=== PATIENT | female | born 1945 | race Caucasian/White ===

== ENCOUNTER 2019-02-01 10:25 | Emergency (ER) | payer MEDICARE, BC ==
--- NOTE | 2019-02-01 10:46 | EDM.PDOC ---
ED HPI GENERAL MEDICAL PROBLEM - General Chief Complaint: Neuro Symptoms/Deficits Stated Complaint: LEFT ARM NUMBNESS,DIZZY Time Seen by Provider: 02/01/19 10:31 Source of Information: Reports: Patient, Family () History Limitations: Reports: No Limitations - History of Present Illness INITIAL COMMENTS - FREE TEXT/NARRATIVE: The patient states that she was holding a cup of coffee in her left hand around 9:30 this morning, when she leaned down to tie her shoes, and states that she lost control of her left hand, that it became weak and clumsy, causing her to spill some coffee. She states that her right hand also felt "goofy", although her left hand clumsiness was worse than her right. The patient states that she simultaneously had the sensation that the room was spinning, which lasted for about 1 minute. At present, she states that the room is not spinning, but she does not feel fully back to normal, that her head feels "esparza", and she may have some dizziness - she's not sure. She also reports some pressure felt in her left posterior parietal area, although she does not call it a headache, per se, that also developed around the same time as her other symptoms. She states that her bilateral hand clumsiness has significantly improved, although is also not back to normal. The patient denies having any of these symptoms previously. The patient states that she took an aspirin when her symptoms occurred. The patient's PCP is Dr. Wilder Rai. Her Sterile Technician is Dr. Ashely Eric. Left Headache Pain Score (Numeric/FACES): 3 - Related Data Allergies Allergy/AdvReac Type Severity Reaction Status Date / Time No Known Allergies Allergy Verified 02/01/19 10:44 Past Medical History Cardiovascular History: Reports: High Cholesterol, Hypertension Gastrointestinal History: Reports: Diverticulosis (with diverticulitis), GERD Genitourinary History: Reports: Urinary Incontinence (stress incontinence) Musculoskeletal History: Reports: RA Endocrine/Metabolic History: Reports: Hypothyroidism - Past Surgical History GI Surgical History: Reports: Colonoscopy (x 1). Denies: EGD Female Surgical History: Reports: Hysterectomy (complete), Other (See Below) (Right breast milk duct removal) Social & Family History - Tobacco Use Smoking Status *Q: Never Smoker - Alcohol Use Alcohol Use History: Yes Alcohol Use Frequency: Rarely - Recreational Drug Use Recreational Drug Use: No - Living Situation & Occupation Living situation: Reports: , with Spouse Occupation: Retired ED ROS GENERAL - Review of Systems Review Of Systems: ROS reveals no pertinent complaints other than HPI. ED EXAM, NEURO - Physical Exam Exam: See Below Exam Limited By: No Limitations General Appearance: Alert, WD/WN, No Apparent Distress Eye Exam: Bilateral Eye: EOMI, Normal Inspection, PERRL Ears: Normal External Exam, Hearing Grossly Normal Nose: Normal Inspection Throat/Mouth: Normal Inspection, Normal Lips, Normal Voice, No Airway Compromise Head Exam: Atraumatic, Normocephalic Neck: Normal Inspection, Full Range of Motion. No: Carotid Bruit Respiratory/Chest: No Respiratory Distress, Lungs Clear, Normal Breath Sounds, No Accessory Muscle Use Cardiovascular: Normal Peripheral Pulses, Regular Rate, Rhythm, No Gallop, No JVD, No Murmur, No Rub GI/Abdominal: Normal Bowel Sounds, Soft, Non-Tender, No Organomegaly, No Distention, No Abnormal Bruit, No Mass (Female) Exam: Deferred Rectal (Female) Exam: Deferred Neurological: Alert, Normal Dorsiflexion, CN II-XII Intact, Normal Plantar Flexion, No Motor/Sensory Deficits (No appreciable hand weakness, either side), Oriented x 3 Back Exam: Normal Inspection, Full Range of Motion, NT Extremities: Normal Inspection, Normal Range of Motion, No Pedal Edema, Normal Capillary Refill Psychiatric: Normal Affect Skin Exam: Warm, Dry, Intact, Normal Color, No Rash EKG INTERPRETATION EKG Date: 02/01/19 Time: 11:13 Rhythm: NSR (with a single PAC) Rate (Beats/Min): 79 Strong: Normal P-Wave: Present QRS: Normal ST-T: Normal QT: Normal Comparison: NA - No Prior EKG Course - Vital Signs Last Recorded V/S: Last Vital Signs Temp 36.3 C 02/01/19 10:40 Pulse 84 02/01/19 10:40 Resp 16 02/01/19 10:40 BP 195/101 H 02/01/19 10:40 Pulse Ox 97 02/01/19 10:40 Orthostatic Blood Pressure [ 173/90 Standing] Orthostatic Blood Pressure [ 177/88 Sitting] Orthostatic Blood Pressure [ 175/79 Supine] - Orders/Labs/Meds Orders: Active Orders 24 hr Category Date Time Status EKG Documentation Completion [RC] STAT Care 02/01/19 10:44 Active Orthostatic Vital Signs [RC] STAT Care 02/01/19 10:44 Active Sodium Chloride 0.9% [Normal Saline] 1,000 ml Med 02/01/19 11:45 Active IV ASDIRECTED Sodium Chloride 0.9% [Normal Saline] 100 ml Med 02/01/19 11:45 Active IV ASDIRECTED Sodium Chloride 0.9% [Saline Flush] Med 02/01/19 11:35 Active 10 ml FLUSH ONETIME PRN Medication Orders Sodium Chloride (Normal Saline) 1,000 mls @ 150 mls/hr IV ASDIRECTED ABRAN Sodium Chloride (Normal Saline) 100 mls @ 80 mls/hr IV ASDIRECTED ABRAN Last Admin: 02/01/19 11:56 Dose: 80 mls/hr Sodium Chloride (Saline Flush) 10 ml FLUSH ONETIME PRN PRN Reason: KEEP VEIN OPEN Last Admin: 02/01/19 11:55 Dose: 10 ml Labs: Laboratory Tests 02/01/19 02/01/19 02/01/19 Range/Units 10:35 10:35 10:35 WBC 4.77 (3.98-10.04) K/mm3 RBC 5.14 (3.98-5.22) M/mm3 Hgb 12.2 (11.2-15.7) gm/L Hct 39.2 (34.1-44.9) % MCV 76.3 L (79.4-94.8) fl MCH 23.7 L (25.6-32.2) pg MCHC 31.1 L (32.2-35.5) g/dl RDW Std Deviation 56.4 H (36.4-46.3) fL Plt Count 301 (182-369) K/mm3 MPV 9.5 (9.4-12.3) fl Neutrophils % (Manual) 58 (40-60) % Band Neutrophils % 0 (0-10) % Lymphocytes % (Manual) 34 (20-40) % Atypical Lymphs % 0 % Monocytes % (Manual) 4 (2-10) % Eosinophils % (Manual) 4 (0.7-5.8) % Basophils % (Manual) 0 L (0.1-1.2) Platelet Estimate Adequate Polychromasia 1+ slight Anisocytosis Moderate RBC Morph Comment Abnormal PT (9.7-12.0) SECONDS INR APTT (22-31) SECONDS D-Dimer, Quantitative (0.19-0.50) mg/L Sodium 140 (136-145) mEq/L Potassium 3.3 L (3.5-5.1) mEq/L Chloride 102 (98-107) mEq/L Carbon Dioxide 26 (21-32) mEq/L Anion Gap 15.3 H (5-15) BUN 18 (7-18) mg/dL Creatinine 0.6 (0.55-1.02) mg/dL Est Cr Clr Drug Dosing 69.96 mL/min Estimated GFR (MDRD) > 60 (>60) mL/min BUN/Creatinine Ratio 30.0 H (14-18) Glucose 135 H (83-115) mg/dL POC Glucose 129 H (83-110) mg/dL Calcium 8.9 (8.5-10.1) mg/dL Magnesium 1.9 (1.8-2.4) mg/dl Total Bilirubin 0.7 (0.2-1.0) mg/dL AST 22 (15-37) U/L ALT 27 (14-59) U/L Alkaline Phosphatase 134 H (46-116) U/L Troponin I < 0.017 (0.00-0.056) ng/mL Total Protein 8.9 H (6.4-8.2) g/dl Albumin 3.8 (3.4-5.0) g/dl Globulin 5.1 gm/dL Albumin/Globulin Ratio 0.8 L (1-2) Urine Color (Yellow) Urine Appearance (Clear) Urine pH (5.0-8.0) Ur Specific [place] (1.005-1.030) Urine Protein (Negative) Urine Glucose (UA) (Negative) Urine Ketones (Negative) Urine Occult Blood (Negative) Urine Nitrite (Negative) Urine Bilirubin (Negative) Urine Urobilinogen (0.2-1.0) Ur Leukocyte Esterase (Negative) Urine RBC (0-5) /hpf Urine WBC (0-5) /hpf Ur Epithelial Cells (0-5) /hpf Urine Bacteria (FEW) /hpf Urine Mucus (FEW) /hpf 02/01/19 02/01/19 Range/Units 10:35 10:55 WBC (3.98-10.04) K/mm3 RBC (3.98-5.22) M/mm3 Hgb (11.2-15.7) gm/L Hct (34.1-44.9) % MCV (79.4-94.8) fl MCH (25.6-32.2) pg MCHC (32.2-35.5) g/dl RDW Std Deviation (36.4-46.3) fL Plt Count (182-369) K/mm3 MPV (9.4-12.3) fl Neutrophils % (Manual) (40-60) % Band Neutrophils % (0-10) % Lymphocytes % (Manual) (20-40) % Atypical Lymphs % % Monocytes % (Manual) (2-10) % Eosinophils % (Manual) (0.7-5.8) % Basophils % (Manual) (0.1-1.2) Platelet Estimate Polychromasia Anisocytosis RBC Morph Comment PT 10.6 (9.7-12.0) SECONDS INR 0.97 APTT 25 (22-31) SECONDS D-Dimer, Quantitative 3.17 H (0.19-0.50) mg/L Sodium (136-145) mEq/L Potassium (3.5-5.1) mEq/L Chloride (98-107) mEq/L Carbon Dioxide (21-32) mEq/L Anion Gap (5-15) BUN (7-18) mg/dL Creatinine (0.55-1.02) mg/dL Est Cr Clr Drug Dosing mL/min Estimated GFR (MDRD) (>60) mL/min BUN/Creatinine Ratio (14-18) Glucose (83-115) mg/dL POC Glucose (83-110) mg/dL Calcium (8.5-10.1) mg/dL Magnesium (1.8-2.4) mg/dl Total Bilirubin (0.2-1.0) mg/dL AST (15-37) U/L ALT (14-59) U/L Alkaline Phosphatase (46-116) U/L Troponin I (0.00-0.056) ng/mL Total Protein (6.4-8.2) g/dl Albumin (3.4-5.0) g/dl Globulin gm/dL Albumin/Globulin Ratio (1-2) Urine Color Yellow (Yellow) Urine Appearance Clear (Clear) Urine pH 6.5 (5.0-8.0) Ur Specific [place] 1.020 (1.005-1.030) Urine Protein Negative (Negative) Urine Glucose (UA) Negative (Negative) Urine Ketones Negative (Negative) Urine Occult Blood 1+ H (Negative) Urine Nitrite Negative (Negative) Urine Bilirubin Negative (Negative) Urine Urobilinogen 0.2 (0.2-1.0) Ur Leukocyte Esterase Negative (Negative) Urine RBC Not seen (0-5) /hpf Urine WBC 0-5 (0-5) /hpf Ur Epithelial Cells 0-5 (0-5) /hpf Urine Bacteria Few (FEW) /hpf Urine Mucus Not seen (FEW) /hpf Meds: Medications Generic Name Dose Route Start Last Admin Trade Name Freq PRN Reason Stop Dose Admin Sodium Chloride 1,000 mls @ 150 mls/hr 02/01/19 11:45 Normal Saline IV ASDIRECTED ABRAN Sodium Chloride 100 mls @ 80 mls/hr 02/01/19 11:45 02/01/19 11:56 Normal Saline IV 80 mls/hr ASDIRECTED ABRAN Administration Sodium Chloride 10 ml 02/01/19 11:35 02/01/19 11:55 Saline Flush FLUSH 10 ml ONETIME PRN Administration KEEP VEIN OPEN Discontinued Medications Generic Name Dose Route Start Last Admin Trade Name Freq PRN Reason Stop Dose Admin Iopamidol 100 ml 02/01/19 11:35 02/01/19 11:55 Isovue-370 (76%) IVPUSH 02/01/19 11:36 100 ml ONETIME ONE Administration - Re-Assessments/Exams Free Text/Narrative Re-Assessment/Exam: 02/01/19 10:46 The cause of the patient's symptoms is not immediately clear, although her report of bilateral hand weakness/clumsiness is inconsistent with a stroke or TIA. The sudden onset of her symptoms is concerning, however, and the patient is a little old to start having migraines, therefore, an acute stroke is a possibility. The patient has gone for a CT of her head without contrast. I have asked Lorena MAY to perform an NIH Stroke Score with the intention of discussing her case with a Neurologist once the CT report is available. In addition, I have ordered a workup that included blood work, urinalysis, orthostatics, and an ECG. 02/01/19 11:00 The patient's NIH Stroke Score is zero. 02/01/19 11:11 The patient is not orthostatic. 02/01/19 11:34 The patient's CBC is unremarkable. Her CMP is remarkable for potassium slightly depressed at 3.3 and a blood glucose slightly elevated 135, with the remainder of the CMP being unremarkable. Her magnesium is within normal limits at 1.9. Her troponin is undetectably low. Her D-dimer is significantly elevated at 3.17. Her coags are within normal limits. The patient's urinalysis is still pending. The CT of the head report is still pending. Based on the patient's elevated D-dimer, with normal renal function, I have ordered a CT angiogram of the chest to evaluate for PE, along with IV fluid. 02/01/19 11:44 CT of the head without contrast is read by Dr. Sanchez as: 1. Senescent change as noted above. 2. Nothing acute is appreciated on noncontrast head CT. Please correlate if patient's symptoms warrant further evaluation by MRI. 02/01/19 11:50 The patient's urinalysis is unremarkable. The patient just returned from the CT angiogram of the chest. Based on the CT report, I went to check to see if MRI is available, and it is. Exclusion criterion are being reviewed by a nurse, and in the meantime, I have ordered a MRI of the brain without contrast. 02/01/19 12:12 CT of the chest without contrast is read by Dr. Sanchez as: 1. No findings of pulmonary embolism. 2. Enlarged right lobe of thyroid gland with substernal extension most likely representing a thyroid goiter. 3. Other findings as noted above believed to be incidental. 02/01/19 13:12 MRI of the brain without contrast is read by Dr. Sanchez as: 1. Small diffusion abnormality within the periventricular white matter within the right parietal convexity compatible with relatively acute small white matter infarct. 2. Mild generalized atrophy and small vessel ischemic demyelination change. 3. No additional abnormality is appreciated. 02/01/19 13:[address] of the head, CT angiogram of the chest, and MRI of the brain images have all been pushed to [facility]. [facility] is being contacted. 02/01/19 13:17 Notified that [facility] is currently on another call, but they will call us back as soon as they are available. 02/01/19 13:44 Case discussed with Chyna at [facility] at 13:34. Case then discussed with Dr. Rice, Neurologist at [facility], at 13: 36. He felt that because the patient's NIH stroke score was 0, and because it was 4 hours and 15 minutes since the onset of her symptoms, that tPA should not be given. He did, however, recommend that the patient be transferred to their ED for a CT angiogram of the head. Chyna then spoke to the emergency department, who felt that the patient could be directly admitted to the Hospitalist service, since tPA was not being given. Case then discussed with Dr. Severino, Hospitalist at [facility], at 13:50. He accepted the patient for direct admission to the medical floor, however, he requested that I instruct the ambulance crew to take the patient to the ED if she develops any new neurologic symptoms. The patient will be transported by ground ambulance. Departure - Departure Time of Disposition: 13:54 Disposition: DC/Tfer to Acute Hospital 02 Condition: Good Clinical Impression: Acute ischemic stroke, Goiter - Discharge Information *PRESCRIPTION DRUG MONITORING PROGRAM REVIEWED*: Not Applicable *COPY OF PRESCRIPTION DRUG MONITORING REPORT IN PATIENT MARTHA: Not Applicable Referrals: Wilder Rai MD [Primary Care Provider] - Ashely Eric MD [Ordering Only Provider] - - My Orders Last 24 Hours: My Active Orders 02/01/19 10:44 EKG Documentation Completion [RC] STAT Orthostatic Vital Signs [RC] STAT 02/01/19 11:35 Sodium Chloride 0.9% [Saline Flush] 10 ml FLUSH ONETIME PRN 02/01/19 11:45 Sodium Chloride 0.9% [Normal Saline] 1,000 ml IV ASDIRECTED Sodium Chloride 0.9% [Normal Saline] 100 ml IV ASDIRECTED - Assessment/Plan Last 24 Hours: My Active Orders 02/01/19 10:44 EKG Documentation Completion [RC] STAT Orthostatic Vital Signs [RC] STAT 02/01/19 11:35 Sodium Chloride 0.9% [Saline Flush] 10 ml FLUSH ONETIME PRN 02/01/19 11:45 Sodium Chloride 0.9% [Normal Saline] 1,000 ml IV ASDIRECTED Sodium Chloride 0.9% [Normal Saline] 100 ml IV ASDIRECTED
[2019-02-01] MEDS ORDERED: Sodium Chloride 0.9% 10 ML Syringe FLUSH PRN (11:35)
[2019-02-01] MEDS ORDERED: Iopamidol 755 Mg/ML 100 ML Bottle IVPUSH ONE (11:35)
--- NOTE | 2019-02-01 11:42 | CT ---
Head CT Technique: Multiple axial sections through the brain were obtained. Intravenous contrast was not utilized. Comparison: No prior intracranial imaging. Findings: Ventricles along with basal cisterns and sulci over the convexities are mildly prominent. Old infarct is noted within the right basal ganglia measuring about 9 mm in size. Minimal areas of diminished density are noted within the periventricular white matter which is compatible with small vessel ischemic demyelination change. No other abnormal parenchymal densities are seen. Mild atherosclerotic calcifications seen within the carotid siphon and within the vertebral vessels. Visualized paranasal sinuses are clear. Visualized mastoid sinuses are clear. No acute calvarial abnormality is seen. Impression: 1. Senescent change as noted above. 2. Nothing acute is appreciated on noncontrast head CT study. Please correlate if patient's symptoms warrant further evaluation by MRI. Diagnostic code #2
[2019-02-01] MEDS ORDERED: Sodium Chloride 0.9% 1,000 ML IV SCH (11:45)
[2019-02-01] MEDS ORDERED: Sodium Chloride 0.9% 100 ML IV SCH (11:45)
--- NOTE | 2019-02-01 12:15 | CT ---
CT chest Technique: Multiple axial sections were obtained from above the lung apices inferiorly through the lung bases. Intravenous contrast was utilized. Study has been performed as a pulmonary angiogram protocol. Findings: Pulmonary arteries are well opacified. No filling defects are seen to indicate pulmonary embolism. Minimal coronary artery calcification is noted. Enlarged right lobe of the thyroid gland is seen with substernal extension most likely representing goitrous change. Calcifications are seen within the left lobe of the thyroid gland. One slightly prominent axillary lymph node is seen on the right side measuring 2.1 cm in size. This lymph node is most likely incidental since no other enlarged lymph nodes are seen. No mediastinal adenopathy is seen. Aorta shows no aneurysm. Moderately large hiatal hernia is seen. Other visualized upper abdominal structures show no discrete abnormality. Bone window settings were reviewed which show nothing acute. Impression: 1. No findings of pulmonary embolism. 2. Enlarged right lobe of thyroid gland with substernal extension most likely representing a thyroid goiter. 3. Other findings as noted above believed to be incidental. Diagnostic code #3
--- NOTE | 2019-02-01 12:51 | MR ---
MRI brain Technique: T1 and T2 FLAIR sagittal; T2, T2 FLAIR, T1, diffusion axial and gradient echo axial; T2 gradient echo and T1-weighted coronal images were obtained of the brain. Comparison: Prior head CT study performed earlier on same day. Findings: Ventricles along with basal cisterns and sulci over the convexities are mildly prominent. Normal signal void is seen within the major cerebral arteries within the skull base. Multiple areas of increased signal are seen within the periventricular and subcortical white matter which have a pattern typical of small vessel ischemic demyelination change. Findings compatible with small old infarct are noted within the right basal ganglia. Small area of acute diffusion abnormality is seen within the periventricular white matter within the right parietal convexity compatible with relatively acute small white matter infarct. No other diffusion abnormalities are seen. Impression: 1. Small diffusion abnormality within the periventricular white matter within the right parietal convexity compatible with relatively acute small white matter infarct. 2. Mild generalized atrophy and small vessel ischemic demyelination change. 3. No additional abnormality is appreciated. Diagnostic code #3
== END 2019-02-01 14:47 ==
LOC: JD.ED 10:25
DX: I63.9 Cerebral infarction, unspecified (principal); R40.2410 Glasgow coma scale score 13-15, unspecified time; R29.700 NIHSS score 0; E04.9 Nontoxic goiter, unspecified; I10 Essential (primary) hypertension
CPT/HCPCS: 36415; 70450; 70551; 71275; 80053; 81001; 82962; 83735; 84484; 85007; 85027; 85379; 85610; 85730; 93005; 99285; J7030; J7040; Q9967

== ENCOUNTER 2019-08-07 14:24 | Emergency (ER) | payer MEDICARE, BC ==
--- NOTE | 2019-08-07 14:52 | EDM.PDOC ---
ED HPI GENERAL MEDICAL PROBLEM - General Chief Complaint: Chest Pain Stated Complaint: HX A-FIB - RAPID HEART RATE YESTERDAY AND TODAY Time Seen by Provider: 08/07/19 14:43 - History of Present Illness INITIAL COMMENTS - FREE TEXT/NARRATIVE: 73-year-old female presents the emergency room with lightheadedness weakness and it looks like she is back in A. fib. Patient has a blood pressure monitor at home that shows that her pulse is been up and it looks like she is back in A. fib she is was in A. fib this last summer for about a week after her stroke. She has not had any chest pain or chest pressure with this however feels weak and tired. She has not had any chest pain breathing difficulties or shortness of breath. He does not have a cough or any congestion at this time. - Related Data Allergies Allergy/AdvReac Type Severity Reaction Status Date / Time No Known Allergies Allergy Verified 08/07/19 14:40 Home Meds: Home Meds Aspirin [Adult Low Dose Aspirin EC] 81 mg PO DAILY 08/07/19 [History] Metoprolol Tartrate [Lopressor] 12.5 mg PO Q12HR #15 tab 08/07/19 [Rx] Warfarin Sodium [Coumadin] 5 mg PO ASDIRECTED #15 tablet 08/07/19 [Rx] Past Medical History HEENT History: Reports: Impaired Vision Cardiovascular History: Reports: High Cholesterol, Hypertension Gastrointestinal History: Reports: Diverticulosis (with diverticulitis), GERD Genitourinary History: Reports: Urinary Incontinence (stress incontinence) 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 Denies: EGD Female Surgical History: Reports: Hysterectomy (complete), Other (See Below) (Right breast milk duct removal) Social & Family History - Living Situation & Occupation Living situation: Reports: , with Spouse Occupation: Retired ED ROS GENERAL - Review of Systems Review Of Systems: See Below Constitutional: Reports: No Symptoms. Denies: Fever, Chills HEENT: Reports: No Symptoms Respiratory: Reports: No Symptoms. Denies: Shortness of Breath, Cough Cardiovascular: Reports: Lightheadedness, Palpitations. Denies: Chest Pain Endocrine: Reports: No Symptoms GI/Abdominal: Reports: No Symptoms ED EXAM, GENERAL - Physical Exam Exam: See Below Exam Limited By: No Limitations General Appearance: Alert, No Apparent Distress, Other (Her pulse ranged ranges from 100-120 clearly in A. fib) Head: Atraumatic, Normocephalic Neck: Normal Inspection, Supple, Non-Tender, Full Range of Motion Respiratory/Chest: No Respiratory Distress, Lungs Clear, Normal Breath Sounds Cardiovascular: No Edema, No Murmur, Tachycardia, Irregularly Irregular GI/Abdominal: Normal Bowel Sounds, Soft, Non-Tender Back Exam: Normal Inspection. No: CVA Tenderness (L), CVA Tenderness (R) Extremities: Normal Inspection, No Pedal Edema Neurological: Alert, Oriented, Normal Cognition Course - Vital Signs Last Recorded V/S: Last Vital Signs Temp 36.1 C 08/07/19 14:37 Pulse 92 08/07/19 17:45 Resp 16 08/07/19 14:37 BP 128/61 08/07/19 17:45 Pulse Ox 95 08/07/19 14:37 - Orders/Labs/Meds Orders: Active Orders 24 hr Category Date Time Status EKG 12 Lead [EKG Documentation Completion] [RC] STAT Care 08/07/19 14:41 Active Labs: Laboratory Tests 08/07/19 08/07/19 08/07/19 Range/Units 15:15 15:15 15:15 WBC 5.16 (3.98-10.04) K/mm3 RBC 4.32 (3.98-5.22) M/mm3 Hgb 8.5 L D (11.2-15.7) gm/dl Hct 30.3 L (34.1-44.9) % MCV 70.1 L D (79.4-94.8) fl MCH 19.7 L (25.6-32.2) pg MCHC 28.1 L (32.2-35.5) g/dl RDW Std Deviation 52.2 H (36.4-46.3) fL Plt Count 370 H (182-369) K/mm3 MPV 9.5 (9.4-12.3) fl Neut % (Auto) 65.9 (34.0-71.1) % Lymph % (Auto) 24.2 (19.3-51.7) % [place] % (Auto) 8.9 (4.7-12.5) % Eos % (Auto) 0.4 L (0.7-5.8) Baso % (Auto) 0.6 (0.1-1.2) % Neut # (Auto) 3.40 (1.56-6.13) K/mm3 Lymph # (Auto) 1.25 (1.18-3.74) K/mm3 [place] # (Auto) 0.46 H (0.24-0.36) K/mm3 Eos # (Auto) 0.02 L (0.04-0.36) K/mm3 Baso # (Auto) 0.03 (0.01-0.08) K/mm3 Manual Slide Review Abnormal smear PT 10.9 (9.7-12.0) SECONDS INR 1.00 APTT 24 (22-31) SECONDS Sodium 140 (136-145) mEq/L Potassium 3.6 (3.5-5.1) mEq/L Chloride 104 (98-107) mEq/L Carbon Dioxide 24 (21-32) mEq/L Anion Gap 15.6 H (5-15) BUN 15 (7-18) mg/dL Creatinine 0.6 (0.55-1.02) mg/dL Est Cr Clr Drug Dosing 69.96 mL/min Estimated GFR (MDRD) > 60 (>60) mL/min BUN/Creatinine Ratio 25.0 H (14-18) Glucose 113 (83-115) mg/dL Calcium 9.0 (8.5-10.1) mg/dL Magnesium 1.8 (1.8-2.4) mg/dl Total Bilirubin 0.5 (0.2-1.0) mg/dL AST 16 (15-37) U/L ALT 24 (14-59) U/L Alkaline Phosphatase 111 (46-116) U/L Troponin I < 0.017 (0.00-0.056) ng/mL Total Protein 8.2 (6.4-8.2) g/dl Albumin 3.6 (3.4-5.0) g/dl Globulin 4.6 gm/dL Albumin/Globulin Ratio 0.8 L (1-2) TSH 3rd Generation (0.358-3.74) uIU/mL 08/07/19 Range/Units 15:15 WBC (3.98-10.04) K/mm3 RBC (3.98-5.22) M/mm3 Hgb (11.2-15.7) gm/dl Hct (34.1-44.9) % MCV (79.4-94.8) fl MCH (25.6-32.2) pg MCHC (32.2-35.5) g/dl RDW Std Deviation (36.4-46.3) fL Plt Count (182-369) K/mm3 MPV (9.4-12.3) fl Neut % (Auto) (34.0-71.1) % Lymph % (Auto) (19.3-51.7) % [place] % (Auto) (4.7-12.5) % Eos % (Auto) (0.7-5.8) Baso % (Auto) (0.1-1.2) % Neut # (Auto) (1.56-6.13) K/mm3 Lymph # (Auto) (1.18-3.74) K/mm3 [place] # (Auto) (0.24-0.36) K/mm3 Eos # (Auto) (0.04-0.36) K/mm3 Baso # (Auto) (0.01-0.08) K/mm3 Manual Slide Review PT (9.7-12.0) SECONDS INR APTT (22-31) SECONDS Sodium (136-145) mEq/L Potassium (3.5-5.1) mEq/L Chloride (98-107) mEq/L Carbon Dioxide (21-32) mEq/L Anion Gap (5-15) BUN (7-18) mg/dL Creatinine (0.55-1.02) mg/dL Est Cr Clr Drug Dosing mL/min Estimated GFR (MDRD) (>60) mL/min BUN/Creatinine Ratio (14-18) Glucose (83-115) mg/dL Calcium (8.5-10.1) mg/dL Magnesium (1.8-2.4) mg/dl Total Bilirubin (0.2-1.0) mg/dL AST (15-37) U/L ALT (14-59) U/L Alkaline Phosphatase (46-116) U/L Troponin I (0.00-0.056) ng/mL Total Protein (6.4-8.2) g/dl Albumin (3.4-5.0) g/dl Globulin gm/dL Albumin/Globulin Ratio (1-2) TSH 3rd Generation 1.810 (0.358-3.74) uIU/mL Meds: Medications Discontinued Medications Generic Name Dose Route Start Last Admin Trade Name Sena PRN Reason Stop Dose Admin Metoprolol Tartrate 5 mg 08/07/19 14:55 08/07/19 15:19 Lopressor IVPUSH 08/07/19 14:56 5 mg ONETIME ONE Administration Metoprolol Tartrate 25 mg 08/07/19 15:43 08/07/19 17:49 Lopressor PO 08/07/19 15:44 Not Given ONETIME ONE Metoprolol Tartrate 12.5 mg 08/07/19 17:34 08/07/19 17:45 Lopressor PO 08/07/19 17:35 12.5 mg ONETIME ONE Administration - Re-Assessments/Exams Free Text/Narrative Re-Assessment/Exam: 08/07/19 15:[address] Rai. Apparently after her stroke they wanted to put a loop recorder in but the patient refused this her history of been in A. fib for a week after her stroke was off of her blood pressure monitor at home. Dr. Rai agrees with getting the patient on anticoagulation the patient and at this point I am anticipating low-dose beta-cresencio therapy for rate control. I discussed anticoagulation options with the patient at this point she is leaning towards Coumadin because her is on Coumadin despite the superiority shown with the factor X inhibitors compared to warfarin with regards to stroke prevention and overall safety. But she is considering all options at this point 08/07/19 17:59 The patient was given 5 mg of IV Lopressor and has done well since that time her rates have been in the 70s to 80s she is remained remained in A. fib. At this point the patient would rather be started on Coumadin. She is understands that the factor X inhibitors are safer and more effective than Coumadin. We have discussed the pros and cons of this extensively. And I think she just wants to follow-up with her insurance company and understand the expense associated with the factor X inhibitors. We have 2 options for starting the Coumadin we can start it in combination with Lovenox to prevent the potential for induced coagulopathy or just start the medication. At this point she wants to just start the Coumadin without the Lovenox. We will have her take Lopressor 12.5 mg twice daily Departure - Departure Time of Disposition: 18:01 Disposition: Home, Self-Care 01 Clinical Impression: Atrial fibrillation with RVR Referrals: Wilder Rai MD [Primary Care Provider] - Forms: ED Department Discharge Additional Instructions: Return to the emergency room with any questions problems or worsening. Start the Coumadin tonight and take 1 nightly. On morning have your INR checked and receive further dosing instructions from the Coumadin clinic at [facility]. Call the [facility] tomorrow and let them know you have been started on Coumadin. Take the Lopressor 1/2 tablet twice daily. Follow-up with Dr. Rai on Wednesday call for an appointment. Sepsis Event Note - Evaluation Sepsis Screening Result: No Definite Risk - Focused Exam Vital Signs: Vital Signs Temp Pulse Pulse Resp BP BP Pulse Ox 08/07/19 17:45 92 128/61 08/07/19 15:19 122 H 143/80 H 08/07/19 14:37 36.1 C 130 H 16 156/84 H 95 Date Exam was Performed: 08/07/19 Time Exam was Performed: 17:59 - My Orders Last 24 Hours: My Active Orders 08/07/19 14:41 EKG 12 Lead [EKG Documentation Completion] [RC] STAT - Assessment/Plan Last 24 Hours: My Active Orders 08/07/19 14:41 EKG 12 Lead [EKG Documentation Completion] [RC] STAT
[2019-08-07] MEDS ORDERED: Metoprolol Tartrate 5 MG/5 ML SDV IVPUSH ONE (14:55)
--- NOTE | 2019-08-07 15:41 | CR ---
Chest: Portable view of the chest was obtained. Comparison: No prior chest x-ray, prior chest CT of 02/01/19. Findings: Heart is enlarged. Large hiatal hernia is noted behind the heart. Lungs are clear with no acute parenchymal change. Bony structures are grossly intact. Impression: 1. Large hiatal hernia and mild cardiomegaly. 2. Nothing acute is otherwise seen. Diagnostic code #2 Study was dictated in [place] Standard Time
[2019-08-07] MEDS ORDERED: Metoprolol Tartrate 25 MG Tab PO ONE ×2 (15:43→17:34)
== END 2019-08-07 18:27 | disposition home or self-care (01) ==
LOC: JD.ED 14:24
DX: I48.91 Unspecified atrial fibrillation (principal); I10 Essential (primary) hypertension; E78.00 Pure hypercholesterolemia, unspecified; Z79.899 Other long term (current) drug therapy
CPT/HCPCS: 36415; 71045; 80053; 83735; 84443; 84484; 85025; 85610; 85730; 93005; 96374; 99285; A9270; J3490; 93010; 99283

== ENCOUNTER 2020-11-17 15:55 | Emergency (ER) | payer MEDICARE, BC ==
[2020-11-17] MEDS ORDERED: Sodium Chloride 0.9% 10 ML Syringe FLUSH PRN (16:06)
[2020-11-17] MEDS ORDERED: HYDROmorphone 0.5 MG/0.5 ML Syringe IVPUSH ONE (16:27)
--- NOTE | 2020-11-17 16:34 | EDM.PDOC ---
ED HPI GENERAL MEDICAL PROBLEM - General Chief Complaint: Trauma Stated Complaint: RT SIDE HIP/RIB PAIN Time Seen by Provider: 11/17/20 16:06 Source of Information: Reports: Patient History Limitations: Reports: No Limitations - History of Present Illness INITIAL COMMENTS - FREE TEXT/NARRATIVE: The patient presents with right flank, back and hip pain. She fell on . She was going up a couple steps in a house to another room and fell back and hit a coffee table. She does not think she hit her head. She is on coumadin for A-fib. She has no headache or neck ward. She does have pain to her right flank and right mid back and right hip. She can walk on it. She has no numbness or weakness. She has been taking ibuprofen and it is not helping. She has no chest pain or shortness of breath. Onset: Sudden Duration: Day(s): (4) Location: Reports: Back, Pelvis, Lower Extremity, Right (hip) Quality: Reports: Sharp Severity: Moderate Improves with: Reports: Immobilization Worsens with: Reports: Movement Context: Reports: Trauma (Fell) Associated Symptoms: Denies: Chest Pain, Cough, Fever/Chills, Headaches, Nausea/Vomiting, Shortness of Breath Right Hip Pain Score (Numeric/FACES): 9 - Related Data Allergies Allergy/AdvReac Type Severity Reaction Status Date / Time No Known Allergies Allergy Verified 11/17/20 16:08 Home Meds: Home Meds Aspirin [Adult Low Dose Aspirin EC] 81 mg PO DAILY 08/07/19 [History] Levothyroxine 75 mcg PO ACBREAKFAST 11/17/20 [History] Lisinopril/Hydrochlorothiazide [Lisinopril-Hctz 20-12.5 mg Tab] 1 each PO DAILY 11/17/20 [History] Methotrexate 1 injection INJECT WEEKLY 11/17/20 [History] Metoprolol Succinate 25 mg PO DAILY 11/17/20 [History] Metoprolol Tartrate [Lopressor] 12.5 mg PO DAILY 11/17/20 [History] Potassium Chloride 20 meq PO DAILY 11/17/20 [History] Rosuvastatin [Crestor] 10 mg PO DAILY 11/17/20 [History] Warfarin Sodium [Coumadin] 4 mg PO DAILY 11/17/20 [History] Past Medical History HEENT History: Reports: Impaired Vision Cardiovascular History: Reports: Afib, High Cholesterol, Hypertension Gastrointestinal History: Reports: Diverticulosis, GERD Genitourinary History: Reports: Urinary Incontinence 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: , Other (See Below) Musculoskeletal History: Reports: RA Neurological History: Reports: CVA Endocrine/Metabolic History: Reports: Hypothyroidism Hematologic History: Reports: Anemia - Past Surgical History GI Surgical History: Reports: Colonoscopy Female Surgical History: Reports: Hysterectomy Social & Family History - Tobacco Use Tobacco Use Status *Q: Never Tobacco User - Caffeine Use Caffeine Use: Reports: None - Recreational Drug Use Recreational Drug Use: No - Living Situation & Occupation Living situation: Reports: , with Spouse Occupation: Retired Review of Systems - Review of Systems Review Of Systems: See Below Constitutional: Reports: No Symptoms Eyes: Reports: No Symptoms Ears: Reports: No Symptoms Nose: Reports: No Symptoms Mouth/Throat: Reports: No Symptoms Respiratory: Reports: No Symptoms Cardiovascular: Reports: No Symptoms GI/Abdominal: Reports: No Symptoms Genitourinary: Reports: No Symptoms Musculoskeletal: Reports: Back Pain, Other (right hip pain) ED EXAM, GENERAL - Physical Exam Exam: See Below Exam Limited By: No Limitations General Appearance: Alert, No Apparent Distress Ears: Normal External Exam Nose: Normal Inspection Head: Atraumatic, Normocephalic Neck: Normal Inspection Respiratory/Chest: No Respiratory Distress, Lungs Clear, Normal Breath Sounds Cardiovascular: Regular Rate, Rhythm, No Edema, No Murmur GI/Abdominal: Soft, Non-Tender, No Organomegaly, No Mass Back Exam: Other (Pain upon palpation to the right flank and right low back with echymosis.) Extremities: Other (Pain upon palpation to the right hip in the posterior area. Good sensation and pulses distally.) Course - Vital Signs Last Recorded V/S: Last Vital Signs Temp 98.5 F 11/17/20 16:04 Pulse 105 H 11/17/20 16:04 Resp 18 11/17/20 16:04 BP 162/94 H 11/17/20 16:04 Pulse Ox 94 L 11/17/20 16:04 - Orders/Labs/Meds Orders: Active Orders 24 hr Category Date Time Status Cardiac Monitoring [RC] . DIRECTED Care 11/17/20 16:07 Active Peripheral IV Care [RC] . DIRECTED Care 11/17/20 16:07 Active Chest Abdomen Pelvis w Cont [CT] Timed Exams 11/17/20 16:06 Taken Head wo Cont [CT] Stat Exams 11/17/20 16:28 Taken Sodium Chloride 0.9% [Saline Flush] Med 11/17/20 16:06 Active 10 ml FLUSH ASDIRECTED PRN Peripheral IV Insertion Adult [OM.PC] Stat Oth 11/17/20 16:06 Ordered Medication Orders Sodium Chloride (Sodium Chloride 0.9% 10 Ml Syringe) 10 ml FLUSH ASDIRECTED PRN PRN Reason: Keep Vein Open Last Admin: 11/17/20 16:13 Dose: 10 ml Documented by: ELIZABETH Labs: Laboratory Tests 11/17/20 11/17/20 11/17/20 Range/Units 16:10 16:10 16:10 WBC 7.85 (3.98-10.04) K/mm3 RBC 5.08 (3.98-5.22) M/mm3 Hgb 12.3 D (11.2-15.7) gm/dl Hct 39.6 (34.1-44.9) % MCV 78.0 L D (79.4-94.8) fl MCH 24.2 L (25.6-32.2) pg MCHC 31.1 L (32.2-35.5) g/dl RDW Std Deviation 60.8 H (36.4-46.3) fL Plt Count 378 H (182-369) K/mm3 MPV 9.7 (9.4-12.3) fl Neut % (Auto) 71.0 (34.0-71.1) % Lymph % (Auto) 17.6 L (19.3-51.7) % [place] % (Auto) 10.7 (4.7-12.5) % Eos % (Auto) 0.3 L (0.7-5.8) Baso % (Auto) 0.3 (0.1-1.2) % Neut # (Auto) 5.58 (1.56-6.13) K/mm3 Lymph # (Auto) 1.38 (1.18-3.74) K/mm3 [place] # (Auto) 0.84 H (0.24-0.36) K/mm3 Eos # (Auto) 0.02 L (0.04-0.36) K/mm3 Baso # (Auto) 0.02 (0.01-0.08) K/mm3 PT 26.1 H (9.7-12.0) SECONDS INR 2.48 Sodium 138 (136-145) mEq/L Potassium 3.8 (3.5-5.1) mEq/L Chloride 101 (98-107) mEq/L Carbon Dioxide 25 (21-32) mEq/L Anion Gap 15.8 H (5-15) BUN 20 H (7-18) mg/dL Creatinine 0.7 (0.55-1.02) mg/dL Est Cr Clr Drug Dosing 58.12 mL/min Estimated GFR (MDRD) > 60 (>60) mL/min BUN/Creatinine Ratio 28.6 H (14-18) Glucose 101 H (70-99) mg/dL Calcium 9.2 (8.5-10.1) mg/dL Total Bilirubin 1.0 (0.2-1.0) mg/dL AST 17 (15-37) U/L ALT 23 (14-59) U/L Alkaline Phosphatase 124 H (46-116) U/L Total Protein 9.1 H (6.4-8.2) g/dl Albumin 3.8 (3.4-5.0) g/dl Globulin 5.3 gm/dL Albumin/Globulin Ratio 0.7 L (1-2) Lipase 67 L (73-393) U/L Meds: Medications Generic Name Dose Route Start Last Admin Trade Name Sena PRN Reason Stop Dose Admin Sodium Chloride 10 ml 11/17/20 16:06 11/17/20 16:13 Sodium Chloride 0.9% 10 Ml Syringe FLUSH 10 ml ASDIRECTED PRN Administration Keep Vein Open Discontinued Medications Generic Name Dose Route Start Last Admin Trade Name Freq PRN Reason Stop Dose Admin Hydromorphone HCl 0.25 mg 11/17/20 16:27 11/17/20 16:43 Hydromorphone 0.5 Mg/0.5 Ml Syringe IVPUSH 11/17/20 16:28 0.25 mg ONETIME ONE Administration - Re-Assessments/Exams Free Text/Narrative Re-Assessment/Exam: 11/17/20 16:34 I ordered an IV saline lock, dilaudid 0.25mg IV, labs, CT of her head, chest, abdomen and pelvis. 11/17/20 17:49 Her CBC and CMP look good. Her INR is therapeutic at 2.48. The CT of her head shows no acute abnormality of the brain. Mild atrophy of the brain parenchyma. Mild chronic white matter microangiopathic change. Old lacunar infarct in the right basal ganglia. Small area of encephalomalacia consistent with an old infarct in the left frontal lobe. Small area of encephalomalacia consistent with an old infarct in the left frontal lobe. CT of her chest shows trace pleural fluid on the right with patchy bibasilar atelectasis. No pulmonary contusion or pneumothorax present. Thyromegaly with multiple nodules. Degenerative change within the thoracic spine. No acute compression fracture identified. CT of her abdomen and pelvis shows no definite acute injury to the abdomen or pelvis. Chronic appearing changes as above. No free fluid or visceral injury present. No fractures identified. I am surprised she did not fracture anything. I will get her on some ultram and have her use an incentive spirometer. She says she has 2 at home. Departure - Departure Time of Disposition: 18:00 Disposition: Home, Self-Care 01 Condition: Good Clinical Impression: Fall Qualifiers: Encounter type: initial encounter Qualified Code(s): W19.XXXA - Unspecified fall, initial encounter Contusion, flank Qualifiers: Encounter type: initial encounter Qualified Code(s): S30.1XXA - Contusion of abdominal wall, initial encounter Contusion of right hip Qualifiers: Encounter type: initial encounter Qualified Code(s): S70.01XA - Contusion of right hip, initial encounter - Discharge Information *PRESCRIPTION DRUG MONITORING PROGRAM REVIEWED*: Not Applicable *COPY OF PRESCRIPTION DRUG MONITORING REPORT IN PATIENT MARTHA: Not Applicable Referrals: Wilder Rai MD [Primary Care Provider] - 1 Week Forms: ED Department Discharge Additional Instructions: Apply ice or heat to the areas that hurt for 15 minutes 3 times per day for 2 days. Take tylenol for pain. If that does not help, try the ultram. You can take 1 to 2 pills every 6 hours as needed for pain. Try one pill first to see how you do with them. Use the incentive spirometer 10 breaths every other hour for a few days to avoid pneumonia. Follow up with Dr Rai within a week. Please return if you are worse. Sepsis Event Note (ED) - Evaluation Sepsis Screening Result: No Definite Risk - Focused Exam Vital Signs: Vital Signs Temp Pulse Resp BP Pulse Ox 11/17/20 16:04 98.5 F 105 H 18 162/94 H 94 L - My Orders Last 24 Hours: My Active Orders 11/17/20 16:06 Chest Abdomen Pelvis w Cont [CT] Timed Sodium Chloride 0.9% [Saline Flush] 10 ml FLUSH ASDIRECTED PRN Peripheral IV Insertion Adult [OM.PC] Stat 11/17/20 16:07 Cardiac Monitoring [RC] . DIRECTED Peripheral IV Care [RC] . DIRECTED 11/17/20 16:28 Head wo Cont [CT] Stat - Assessment/Plan Last 24 Hours: My Active Orders 11/17/20 16:06 Chest Abdomen Pelvis w Cont [CT] Timed Sodium Chloride 0.9% [Saline Flush] 10 ml FLUSH ASDIRECTED PRN Peripheral IV Insertion Adult [OM.PC] Stat 11/17/20 16:07 Cardiac Monitoring [RC] . DIRECTED Peripheral IV Care [RC] . DIRECTED 11/17/20 16:28 Head wo Cont [CT] Stat
--- NOTE | 2020-11-18 07:58 | CT ---
CT chest Technique: Multiple axial sections were obtained from above the lung apices inferiorly through the lung bases. Intravenous contrast was utilized. Reconstructed coronal and sagittal images were obtained. Comparison: No prior chest CT study is available, prior chest x-ray at 08/07/19 is available. Findings: Thyroid gland shows multiple nodules most of which show calcification. There is enlargement of the right lobe which shows substernal thyroid goitrous extension. Thoracic aorta shows mild atherosclerotic calcification with no aneurysm. Mediastinum and hilar regions show no adenopathy. Minimal coronary artery calcification is seen. No pericardial thickening is seen. Moderately large hiatal hernia is noted. Minimal right-sided pleural effusion is seen. Mild atelectasis is seen within both lung bases. Lungs otherwise are clear with no other acute parenchymal change. Bone window settings were reviewed which show minimal fractures within the right transverse process of L1 and L2. Slightly displaced right rib fracture is seen posteriorly within T12 with two nondisplaced right rib fractures within T11. Slightly displaced right rib fracture within the slight posterolateral aspect of T10. Several old healed rib fractures are noted on the left side. Scattered degenerative change is seen within the spine with areas of osteopenia. Impression: 1. Three right lower rib fractures. Several old healed left-sided rib fractures. Minimal fractures within the right transverse process of L1 and L2. 2. Small right-sided pleural effusion with mild bibasilar atelectasis. 3. Chronic thyroid findings as noted above. 4. Other chronic findings as noted above. Diagnostic code #3 I slightly disagree with preliminary report from [facility] (right lower rib fractures), finalized on 11/17/20, 6:24 PM CDT, code 2 CT abdomen and pelvis Technique: Multiple axial sections were obtained from above the diaphragm inferiorly through the pubic symphysis. Intravenous contrast was utilized. No oral contrast has been given. Reconstructed coronal and sagittal images were obtained. Comparison: Prior noncontrast CT study of the abdomen and pelvis dated 06/28/15. Findings: Moderately large hiatal hernia is noted. Liver contains no focal parenchymal abnormality. Gallbladder contains no calcified gallstones. Fat-containing lesion is noted within the left kidney. This was incorrectly stated on the preliminary study is being within the right kidney. 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 Small cysts are seen within both kidneys. Small calcified cyst is noted within the upper right kidney measuring 9 mm. No ureteral dilatation or ureteral calculi are seen. Pancreas appears within normal limits. Abdominal aorta shows no aneurysm. No retroperitoneal adenopathy or mesenteric abnormalities are seen. Diverticuli are noted within the sigmoid colon and descending colon with no findings of diverticulitis. Appendix is seen which is normal. Bone window settings were reviewed which show diffuse osteopenia. Fracture is again seen within the right lower chest and within the right transverse process of L1 and L2. Degenerative change is noted throughout the spine and within the sacroiliac joints. No other acute abnormality is seen within the osseous structures. Impression: 1. Small fractures within the right L1 and L2 transverse processes. Three right lower rib fractures are again noted. 2. Other findings as noted above which are chronic. Nothing acute is otherwise appreciated. Diagnostic code #3 I agree with preliminary report from [facility], finalized on 11/17/20, 6:27 PM CDT, code 1 MTDD
--- NOTE | 2020-11-18 08:02 | CT ---
Head CT Technique: Multiple axial sections were obtained through the brain. Intravenous contrast was not utilized. Reconstructed coronal and sagittal images were obtained. Comparison: Prior MRI brain of 02/01/[address] study of 02/01/19. Findings: Ventricles along with basal cisterns and sulci over the convexities are mildly prominent. Mild areas of diminished density are noted within the periventricular white matter compatible with small vessel ischemic demyelination change. Similar finding is seen within the sandeep. 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 This frontal lesion is an interval change from prior exam. No other abnormal parenchymal densities are seen. No evidence of intracranial hemorrhage. No midline shift or mass-effect is seen. Mild atherosclerotic calcification is seen within the vertebral vessels and within the carotid siphon. Bone window settings were reviewed. Visualised mastoid sinuses and paranasal sinuses show nothing acute. No acute calvarial abnormality is appreciated. Impression: 1. Senescent changes as noted above which appear stable. 2. Small area of encephalomalacia within the posterior left frontal region which is an interval change from prior exam. 3. No acute intracranial abnormality is appreciated. Diagnostic code #2 I agree with preliminary report from [facility], finalized on 11/17/20, 6:21 PM CDT, code 1
== END 2020-11-17 18:27 | disposition home or self-care (01) ==
LOC: JD.ED 15:55
DX: S30.1XXA Contusion of abdominal wall, initial encounter (principal); S70.01XA Contusion of right hip, initial encounter; I48.91 Unspecified atrial fibrillation; E78.00 Pure hypercholesterolemia, unspecified; I10 Essential (primary) hypertension; M06.9 Rheumatoid arthritis, unspecified; E03.9 Hypothyroidism, unspecified; Z79.82 Long term (current) use of aspirin; Z79.899 Other long term (current) drug therapy; Z86.73 Personal history of transient ischemic attack (TIA), and cerebral infarction without residual deficits; Z79.01 Long term (current) use of anticoagulants; Y92.009 Unspecified place in unspecified non-institutional (private) residence as the place of occurrence of the external cause; W22.8XXA Striking against or struck by other objects, initial encounter; R41.81 Age-related cognitive decline
CPT/HCPCS: 36415; 70450; 71260; 74177; 80053; 83690; 85025; 85610; 96374; 99284; J1170

== ENCOUNTER 2021-11-03 10:46 | Emergency (ER) | payer MEDICARE, BC ==
[2021-11-03] MEDS ORDERED: Oxymetazoline 0.05% Nasal Spray 30 ML Bottle NAS ONE (11:34)
[2021-11-03] MEDS ORDERED: Acetaminophen 325 MG Tab PO ONE (14:17)
[2021-11-03] MEDS ORDERED: Sodium Chloride 0.9% 10 ML Syringe FLUSH PRN (15:02)
[2021-11-03] MEDS ORDERED: Labetalol 100 MG/20 ML MDV IVPUSH ONE ×4 (15:02→18:03)
[2021-11-03] MEDS ORDERED: HYDROmorphone 0.5 MG/0.5 ML Syringe IVPUSH ONE ×2 (15:03→17:35)
[2021-11-03] MEDS ORDERED: LORazepam 2 MG/ML SDV IVPUSH ONE (15:03)
[2021-11-03] MEDS ORDERED: Phytonadione ORAL 2.5mg/2.5ml Soln Simple Syrup U/D PO ONE (18:05)
== END 2021-11-03 19:41 | disposition home or self-care (01) ==
LOC: JD.ED 10:46
DX: R04.0 Epistaxis (principal); I48.91 Unspecified atrial fibrillation; E78.00 Pure hypercholesterolemia, unspecified; E03.9 Hypothyroidism, unspecified; I10 Essential (primary) hypertension; Z86.73 Personal history of transient ischemic attack (TIA), and cerebral infarction without residual deficits; Z90.710 Acquired absence of both cervix and uterus; Z79.899 Other long term (current) drug therapy; Z79.82 Long term (current) use of aspirin; Z88.5 Allergy status to narcotic agent
CPT/HCPCS: 30901; 36415; 85025; 85610; 96374; 96375; 96376; 99283; A9270; C9046; J1170; J2060; J3490

== ENCOUNTER 2021-11-04 08:15 | Emergency (ER) | payer MEDICARE, BC ==
[2021-11-04] MEDS ORDERED: Acetaminophen 325 MG Tab PO ONE (10:36)
[2021-11-04] MEDS ORDERED: Cephalexin 500 MG Cap PO ONE (10:37)
== END 2021-11-04 11:15 | disposition home or self-care (01) ==
LOC: JD.ED 08:15
DX: R04.0 Epistaxis (principal); E78.00 Pure hypercholesterolemia, unspecified; I10 Essential (primary) hypertension; E03.9 Hypothyroidism, unspecified; Z86.73 Personal history of transient ischemic attack (TIA), and cerebral infarction without residual deficits; Z90.710 Acquired absence of both cervix and uterus; Z79.899 Other long term (current) drug therapy; Z79.82 Long term (current) use of aspirin; Z88.5 Allergy status to narcotic agent; Z79.01 Long term (current) use of anticoagulants
CPT/HCPCS: 70486; 99283; A9270

== ENCOUNTER 2021-11-04 18:04 | Emergency (ER) | payer MEDICARE, BC | END 2021-11-04 19:45 | disposition home or self-care (01) | LOC: JD.ED 18:04 | DX: R04.0 Epistaxis (principal); E78.00 Pure hypercholesterolemia, unspecified; I10 Essential (primary) hypertension; E03.9 Hypothyroidism, unspecified; Z86.73 Personal history of transient ischemic attack (TIA), and cerebral infarction without residual deficits; Z90.710 Acquired absence of both cervix and uterus; Z79.899 Other long term (current) drug therapy; Z79.82 Long term (current) use of aspirin; Z79.01 Long term (current) use of anticoagulants; Z88.5 Allergy status to narcotic agent | CPT/HCPCS: 30901; 99282; 99283-25 ==